=== PATIENT | female | born 1950 | race Caucasian/White ===

== ENCOUNTER 2016-10-17 20:23 | Emergency (ER) | payer MEDICARE, MEDICAID ==
[~2016-10-17 20:23] MED LIST: ADVAIR 2501 DISK W/D IH; ADVAIR 25028 BLISTE1 INH; ADVAIR INH; ALBUTEROL17 GM INH; ASPERDRINK81 MG PO; ASPIR 8181 MG PO; ATARAX25 MG PO; ATROVENT30 ML NS; AUGMENTIN875 MG PO; AVELOX400 MG PO; AZITHROMYCIN500 M3 PO; BACTRIM DS1 TA1 PO; BENADRYL50 MG PO; CEPHALEXIN500 M1 PO; CIPRO500 MG PO; CLEOCIN HCL300 MG PO; COLACE100 MG PO; DALIRESP500 MC1 PO; DALIRESP500 MCG PO; DELTASONE10 MG PO; DO NOT TAKE; DULCOLAX10 MG/SUPP RC; IBUPROFEN600 MG PO; LIDODERM700 MG TP; LORTAB 5-500 T1 EAC1 PO; MIDODRINE HCL5 M1 PO; MOTRIN600 MG PO; MOTRIN800 MG PO; MUCINEX DM ER1 EAC1 PO; MUCINEX DM ER1 EACH PO; MUCINEX1200 MG PO; MUCINEX1200 MG/BO PO; MUCINEX600 MG PO; NORCO 5/3251 TAB PO; OXYGEN 2L; PERCOCET 5/3251 TAB PO; PREDNISONE10 M1 PO; PRILOSEC20 MG PO; PROAIR HFA8.5 GM INH; SMZ-TMP DS 800-1 TAB PO; SPIRIVA18 MC1 INH; SPIRIVA18 MCG IH; SURFAK240 M1 PO; SYMBICORT 160-4.6 GM IH; TYLENOL325 MG PO; TYLENOL650 MG PO; ULTRAM50 MG PO; VICODIN 5/500 T1 TAB PO; ZITHROMAX250 MG PO; ZOFRAN4 M1 PO; [UNRECOGNIZED DRUG - OTHER] NS
[2016-10-17] MEDS ORDERED: NORCO 5-325 TA1 EACH PO (22:06)
== END 2016-10-17 22:10 ==
LOC: EDMED 20:23
DX: M54.5 Low back pain (principal); G89.29 Other chronic pain; M43.8X6 Other specified deforming dorsopathies, lumbar region; J45.909 Unspecified asthma, uncomplicated; Z90.710 Acquired absence of both cervix and uterus; Z90.49 Acquired absence of other specified parts of digestive tract; F17.200 Nicotine dependence, unspecified, uncomplicated; Z79.51 Long term (current) use of inhaled steroids; Z79.899 Other long term (current) drug therapy
CPT/HCPCS: J1170; J1885